=== PATIENT | male | born 1930 | race Caucasian/White ===

== ENCOUNTER 2017-07-30 10:59 | Inpatient (IN) | payer OTHER ==
[2017-07-30 12:01] LABS: ADD MAN DIFF? NO
[2017-07-30 12:15] LABS: BASOPHILS % 0.2 % (0.0-2.0); EOSINOPHILS % 0.7 % (0.0-7.0); HEMATOCRIT 33.1 % (42.0-52.0); HEMOGLOBIN 10.9 g/dl (14.0-18.0); LYMPHOCYTES # 1.5 10^3/ul (0.8-2.9); LYMPHOCYTES % 28.2 % (15.0-51.0); MEAN CORPUSCULAR HEMOGLOBIN 31.6 pg (29.0-33.0); MEAN CORPUSCULAR HGB CONC 32.9 g/dl (32.0-37.0); MEAN CORPUSCULAR VOLUME 95.9 fl (82.0-101.0); MEAN PLATELET VOLUME 10.2 fl (7.4-10.4); MONOCYTE # 0.5 10^3/ul (0.3-0.9); MONOCYTES % 8.7 % (0.0-11.0); NEUTROPHIL # 3.3 10^3/ul (1.6-7.5); NEUTROPHILS % 61.5 % (39.0-77.0); PLATELET COUNT 147 10^3/UL (140-415); RED BLOOD COUNT 3.45 10^6/ul (4.70-6.10); RED CELL DISTRIBUTION WIDTH 15.7 % (11.5-14.5)
[2017-07-30 12:15] LABS: WHITE BLOOD COUNT 5.4 10^3/ul (4.8-10.8)
[2017-07-30] MEDS: SOD CHLORIDE 0.9% 1,000 ML IV ×3 (12:16→23:54)
[2017-07-30 12:36] LABS: INR 0.91; PROTIME 12.3 Sec (11.9-14.9)
[2017-07-30 12:37] LABS: PARTIAL THROMBOPLASTIN TIME 40.8 Sec (25.0-35.0)
[2017-07-30 12:48] LABS: ALANINE AMINOTRANSFERASE 24 IU/L (13-69); ALBUMIN 3.5 g/dl (3.3-4.9); ALBUMIN/GLOBULIN RATIO 0.79; ALKALINE PHOSPHATASE 86 IU/L (42-121); ANION GAP 16 (8-16); ASPARTATE AMINO TRANSFERASE 32 IU/L (15-46); BILIRUBIN,INDIRECT 0.1 mg/dl (0-1.1); BILIRUBIN,TOTAL 0.1 mg/dl (0.2-1.3); BLOOD UREA NITROGEN 29 mg/dl (7-20); CALCIUM 8.8 mg/dl (8.4-10.2); CARBON DIOXIDE 30 mmol/L (21-31); CHLORIDE 99 mmol/L (97-110); CREATININE 0.75 mg/dl (0.61-1.24); GLUCOSE 123 mg/dl (70-220); POTASSIUM 4.7 mmol/L (3.5-5.1); SODIUM 140 mmol/L (135-144); TOTAL PROTEIN 7.9 g/dl (6.1-8.1)
[2017-07-30 13:04] LABS: OCCULT BLOOD STOOL POSITIVE (NEGATIVE)
[2017-07-30] MEDS ORDERED: ARTIFICIAL TEARS 15 ML OPH BOTH EYES (14:00)
[2017-07-30] MEDS ORDERED: ALBUTEROL/IPRATROPIUM (NEB) 3 ML AMP INH (14:00)
[2017-07-30] MEDS ORDERED: PHENOL 1.4% SOLN 180 ML BTL MT (14:00)
[2017-07-30] MEDS ORDERED: NACL 0.9% 3 ML SYG IV (14:00)
[2017-07-30] MEDS ORDERED: NYSTATIN SUSP 5 ML CUP PO (14:00)
[2017-07-30] MEDS ORDERED: traZODone 100 MG TAB PO (14:00)
[2017-07-30] MEDS ORDERED: BISACODYL 10 MG SUPP PR (14:00)
[2017-07-30] MEDS ORDERED: ACETAMINOPHEN 325 MG TAB PO (14:00)
[2017-07-30] MEDS ORDERED: NA PHOSPHATE/BIPHOS 133 ML ENEMA PR (14:00)
[2017-07-30] MEDS ORDERED: ACETAMINOPHEN 325 MG TAB GTB (14:00)
[2017-07-30] MEDS ORDERED: ONDANSETRON 4 MG INJ IV ×2 (14:00)
[2017-07-30] MEDS ORDERED: morphine 2 MG INJ IV (14:00)
[2017-07-30] MEDS: CEFTRIAXONE 1 GM/50 ML (PMX) 50 ML IVPB (14:38)
[2017-07-30] MEDS: CLONIDINE 0.1 MG/24 HR PATCH TRANSDERM (14:44)
[2017-07-30 19:02] LABS: HEMATOCRIT 25.2 % (42.0-52.0); HEMOGLOBIN 8.4 g/dl (14.0-18.0)
[2017-07-30] MEDS: LACTULOSE 30ML CUP GTB ×2 (20:14→22:20)
[2017-07-30] MEDS: LANSOPRAZOLE 30 MG CAP GTB (20:35)
[2017-07-30] MEDS: SENNA TAB GTB (20:36)
[2017-07-30] MEDS: METOPROLOL 25 MG TAB GTB (20:36)
[2017-07-31] MEDS: LACTULOSE 30ML CUP GTB ×4 (00:53→10:36)
[2017-07-31 01:10] LABS: HEMATOCRIT 26.1 % (42.0-52.0); HEMOGLOBIN 8.8 g/dl (14.0-18.0)
[2017-07-31] MEDS ORDERED: AMIODARONE 200 MG TAB (03:54)
[2017-07-31] MEDS: METOPROLOL 50 MG TAB GTB (03:57)
[2017-07-31] MEDS: AMIODARONE 200 MG TAB GTB (03:57)
[2017-07-31] MEDS: LANSOPRAZOLE 30 MG CAP GTB ×2 (05:45→19:04)
[2017-07-31 07:27] LABS: ADD MAN DIFF? NO
[2017-07-31 07:30] LABS: WHITE BLOOD COUNT 4.6 10^3/ul (4.8-10.8)
[2017-07-31 07:30] LABS: BASOPHILS % 0.2 % (0.0-2.0); EOSINOPHILS % 0.2 % (0.0-7.0); HEMATOCRIT 27.6 % (42.0-52.0); HEMOGLOBIN 9.1 g/dl (14.0-18.0); LYMPHOCYTES # 1.9 10^3/ul (0.8-2.9); LYMPHOCYTES % 40.7 % (15.0-51.0); MEAN CORPUSCULAR HEMOGLOBIN 31.6 pg (29.0-33.0); MEAN CORPUSCULAR VOLUME 95.8 fl (82.0-101.0); MEAN PLATELET VOLUME 10.2 fl (7.4-10.4); MONOCYTE # 0.5 10^3/ul (0.3-0.9); MONOCYTES % 11.4 % (0.0-11.0); NEUTROPHIL # 2.1 10^3/ul (1.6-7.5); NEUTROPHILS % 46.6 % (39.0-77.0); PLATELET COUNT 129 10^3/UL (140-415); POSITIVE DIFF @See below; RED BLOOD COUNT 2.88 10^6/ul (4.70-6.10); RED CELL DISTRIBUTION WIDTH 15.9 % (11.5-14.5)
[2017-07-31 08:01] LABS: ANION GAP 15 (8-16); BLOOD UREA NITROGEN 23 mg/dl (7-20); CALCIUM 8.8 mg/dl (8.4-10.2); CARBON DIOXIDE 27 mmol/L (21-31); CHLORIDE 114 mmol/L (97-110); CREATININE 0.71 mg/dl (0.61-1.24); GLUCOSE 152 mg/dl (70-220); MAGNESIUM 1.8 mg/dl (1.7-2.5); PHOSPHORUS 3.9 mg/dl (2.5-4.9); POTASSIUM 4.3 mmol/L (3.5-5.1); SODIUM 152 mmol/L (135-144)
[2017-07-31] MEDS: SENNA TAB GTB ×2 (08:15→21:00)
[2017-07-31] MEDS: METOPROLOL 25 MG TAB GTB ×2 (08:17→21:09)
[2017-07-31] MEDS: POLYETHYLENE GLYCOL 17 GM PACKET GTB (08:17)
[2017-07-31] MEDS: TIOTROPIUM 18 MCG CAPSULE INHA DEV INH (09:00)
[2017-07-31] MEDS: DEXTROSE 5%-0.45% NACL 1,000 ML IV (13:23)
[2017-07-31 13:29] LABS: HEMATOCRIT 30.5 % (42.0-52.0); HEMOGLOBIN 9.8 g/dl (14.0-18.0)
[2017-07-31] MEDS: CEFTRIAXONE 1 GM/50 ML (PMX) 50 ML IVPB (13:35)
[2017-07-31] MEDS: FLUCONAZOLE 100 MG TAB GTB (19:04)
[2017-08-01] MEDS: DEXTROSE 5%-0.45% NACL 1,000 ML IV ×2 (06:33→17:28)
[2017-08-01] MEDS: LANSOPRAZOLE 30 MG CAP GTB ×2 (06:33→17:28)
[2017-08-01 07:39] LABS: ADD MAN DIFF? NO
[2017-08-01 07:47] LABS: BASOPHILS % 0.2 % (0.0-2.0); EOSINOPHILS % 0.6 % (0.0-7.0); HEMATOCRIT 26.2 % (42.0-52.0); HEMOGLOBIN 8.5 g/dl (14.0-18.0); LYMPHOCYTES # 1.7 10^3/ul (0.8-2.9); LYMPHOCYTES % 34.4 % (15.0-51.0); MEAN CORPUSCULAR HEMOGLOBIN 32.1 pg (29.0-33.0); MEAN CORPUSCULAR HGB CONC 32.4 g/dl (32.0-37.0); MEAN CORPUSCULAR VOLUME 98.9 fl (82.0-101.0); MEAN PLATELET VOLUME 10.3 fl (7.4-10.4); MONOCYTE # 0.6 10^3/ul (0.3-0.9); MONOCYTES % 12.1 % (0.0-11.0); NEUTROPHIL # 2.6 10^3/ul (1.6-7.5); NEUTROPHILS % 51.9 % (39.0-77.0); PLATELET COUNT 125 10^3/UL (140-415); POSITIVE DIFF @See below; RED BLOOD COUNT 2.65 10^6/ul (4.70-6.10); RED CELL DISTRIBUTION WIDTH 15.9 % (11.5-14.5)
[2017-08-01 08:11] LABS: ALBUMIN 3.1 g/dl (3.3-4.9); ANION GAP 10 (8-16); BLOOD UREA NITROGEN 28 mg/dl (7-20); CALCIUM 8.5 mg/dl (8.4-10.2); CARBON DIOXIDE 26 mmol/L (21-31); CHLORIDE 117 mmol/L (97-110); CREATININE 0.89 mg/dl (0.61-1.24); GLUCOSE 194 mg/dl (70-220); MAGNESIUM 1.7 mg/dl (1.7-2.5); PHOSPHORUS 3.1 mg/dl (2.5-4.9); POTASSIUM 3.5 mmol/L (3.5-5.1); SODIUM 149 mmol/L (135-144)
[2017-08-01] MEDS: AMIODARONE 200 MG TAB GTB (09:47)
[2017-08-01] MEDS: POLYETHYLENE GLYCOL 17 GM PACKET GTB (09:47)
[2017-08-01] MEDS: SENNA TAB GTB ×2 (09:47→20:19)
[2017-08-01] MEDS: FLUCONAZOLE 100 MG TAB GTB (09:47)
[2017-08-01] MEDS: METOPROLOL 25 MG TAB GTB ×2 (09:48→20:20)
[2017-08-01] MEDS: TIOTROPIUM 18 MCG CAPSULE INHA DEV INH (10:08)
[2017-08-01] MEDS: CEFTRIAXONE 1 GM/50 ML (PMX) 50 ML IVPB (14:55)
[2017-08-01] MEDS: POTASSIUM CHLORIDE 50 ML IVPB ×3 (16:19→22:36)
[2017-08-01] MEDS: MAGNESIUM OXIDE 400 MG TAB GTB (16:19)
[2017-08-02] MEDS: DEXTROSE 5%-0.45% NACL 1,000 ML IV ×2 (00:35→04:15)
[2017-08-02] MEDS: POTASSIUM CHLORIDE 50 ML IVPB (00:36)
[2017-08-02] MEDS: LANSOPRAZOLE 30 MG CAP GTB ×2 (06:05→17:49)
[2017-08-02 08:31] LABS: ALBUMIN 2.7 g/dl (3.3-4.9); ANION GAP 11 (8-16); BLOOD UREA NITROGEN 19 mg/dl (7-20); CALCIUM 8.5 mg/dl (8.4-10.2); CARBON DIOXIDE 26 mmol/L (21-31); CHLORIDE 108 mmol/L (97-110); CREATININE 0.69 mg/dl (0.61-1.24); GLUCOSE 175 mg/dl (70-220); MAGNESIUM 1.4 mg/dl (1.7-2.5); PHOSPHORUS 2.6 mg/dl (2.5-4.9); POTASSIUM 3.7 mmol/L (3.5-5.1); SODIUM 141 mmol/L (135-144)
[2017-08-02] MEDS: TIOTROPIUM 18 MCG CAPSULE INHA DEV INH (08:41)
[2017-08-02] MEDS: POLYETHYLENE GLYCOL 17 GM PACKET GTB (08:42)
[2017-08-02] MEDS: METOPROLOL 25 MG TAB GTB ×2 (08:43→21:12)
[2017-08-02] MEDS: AMIODARONE 200 MG TAB GTB (08:44)
[2017-08-02] MEDS: SENNA TAB GTB ×2 (08:44→21:11)
[2017-08-02] MEDS: FLUCONAZOLE 100 MG TAB GTB (08:44)
[2017-08-02] MEDS: MAGNESIUM SULFATE 2 GM/50 ML 50 ML IVPB (13:23)
[2017-08-02] MEDS ORDERED: IOHEXOL 300MG/ML 30 ML BTL ×2 (14:03→14:04)
[2017-08-02] MEDS: CEFTRIAXONE 1 GM/50 ML (PMX) 50 ML IVPB (15:23)
[2017-08-03] MEDS: LANSOPRAZOLE 30 MG CAP GTB ×2 (06:22→17:27)
[2017-08-03 07:43] LABS: ADD MAN DIFF? NO
[2017-08-03 07:49] LABS: BASOPHILS % 0.2 % (0.0-2.0); EOSINOPHILS # 0.1 10^3/ul (0.0-0.5); EOSINOPHILS % 2.3 % (0.0-7.0); HEMATOCRIT 23.3 % (42.0-52.0); HEMOGLOBIN 7.7 g/dl (14.0-18.0); LYMPHOCYTES # 1.6 10^3/ul (0.8-2.9); LYMPHOCYTES % 32.8 % (15.0-51.0); MEAN CORPUSCULAR HEMOGLOBIN 31.6 pg (29.0-33.0); MEAN CORPUSCULAR VOLUME 95.5 fl (82.0-101.0); MEAN PLATELET VOLUME 10.4 fl (7.4-10.4); MONOCYTE # 0.5 10^3/ul (0.3-0.9); NEUTROPHIL # 2.5 10^3/ul (1.6-7.5); NEUTROPHILS % 51.8 % (39.0-77.0); PLATELET COUNT 121 10^3/UL (140-415); RED BLOOD COUNT 2.44 10^6/ul (4.70-6.10)
[2017-08-03 07:49] LABS: WHITE BLOOD COUNT 4.8 10^3/ul (4.8-10.8)
[2017-08-03] MEDS: SENNA TAB GTB ×2 (08:14→20:09)
[2017-08-03] MEDS: POLYETHYLENE GLYCOL 17 GM PACKET GTB (08:14)
[2017-08-03] MEDS: FLUCONAZOLE 100 MG TAB GTB (08:15)
[2017-08-03] MEDS: AMIODARONE 200 MG TAB GTB (08:15)
[2017-08-03] MEDS: TIOTROPIUM 18 MCG CAPSULE INHA DEV INH (08:16)
[2017-08-03] MEDS: METOPROLOL 25 MG TAB GTB ×2 (08:16→20:08)
[2017-08-03 08:22] LABS: ANION GAP 11 (8-16)
[2017-08-03 08:26] LABS: ALBUMIN 2.6 g/dl (3.3-4.9); BLOOD UREA NITROGEN 17 mg/dl (7-20); CALCIUM 8.1 mg/dl (8.4-10.2); CARBON DIOXIDE 27 mmol/L (21-31); CHLORIDE 105 mmol/L (97-110); CREATININE 0.64 mg/dl (0.61-1.24); GLUCOSE 167 mg/dl (70-220); MAGNESIUM 1.7 mg/dl (1.7-2.5); PHOSPHORUS 3.2 mg/dl (2.5-4.9); POTASSIUM 3.9 mmol/L (3.5-5.1); SODIUM 139 mmol/L (135-144)
[2017-08-03] MEDS: DEXTROSE 5%-0.45% NACL 1,000 ML IV ×2 (12:47→21:38)
[2017-08-04] MEDS: LANSOPRAZOLE 30 MG CAP GTB ×2 (05:37→17:18)
[2017-08-04 07:56] LABS: ADD MAN DIFF? NO
[2017-08-04 08:07] LABS: BASOPHILS % 0.4 % (0.0-2.0); EOSINOPHILS # 0.1 10^3/ul (0.0-0.5); EOSINOPHILS % 2.6 % (0.0-7.0); HEMATOCRIT 26.3 % (42.0-52.0); HEMOGLOBIN 8.7 g/dl (14.0-18.0); LYMPHOCYTES # 1.6 10^3/ul (0.8-2.9); LYMPHOCYTES % 31.4 % (15.0-51.0); MEAN CORPUSCULAR HEMOGLOBIN 31.3 pg (29.0-33.0); MEAN CORPUSCULAR HGB CONC 33.1 g/dl (32.0-37.0); MEAN CORPUSCULAR VOLUME 94.6 fl (82.0-101.0); MEAN PLATELET VOLUME 9.9 fl (7.4-10.4); MONOCYTE # 0.5 10^3/ul (0.3-0.9); MONOCYTES % 10.5 % (0.0-11.0); NEUTROPHIL # 2.6 10^3/ul (1.6-7.5); NEUTROPHILS % 52.7 % (39.0-77.0); PLATELET COUNT 136 10^3/UL (140-415); RED BLOOD COUNT 2.78 10^6/ul (4.70-6.10)
[2017-08-04 08:07] LABS: WHITE BLOOD COUNT 4.9 10^3/ul (4.8-10.8)
[2017-08-04] MEDS: POLYETHYLENE GLYCOL 17 GM PACKET GTB (09:19)
[2017-08-04] MEDS: SENNA TAB GTB ×2 (09:20→21:32)
[2017-08-04] MEDS: TIOTROPIUM 18 MCG CAPSULE INHA DEV INH (09:20)
[2017-08-04] MEDS: METOPROLOL 25 MG TAB GTB ×2 (09:21→21:32)
[2017-08-04] MEDS: AMIODARONE 200 MG TAB GTB (09:21)
[2017-08-04] MEDS: FLUCONAZOLE 100 MG TAB GTB (09:21)
[2017-08-04] MEDS: DEXTROSE 5%-0.45% NACL 1,000 ML IV (17:18)
[2017-08-05] MEDS: LANSOPRAZOLE 30 MG CAP GTB ×2 (05:48→17:29)
[2017-08-05 07:59] LABS: ADD MAN DIFF? NO
[2017-08-05 08:03] LABS: BASOPHILS % 0.3 % (0.0-2.0); EOSINOPHILS # 0.1 10^3/ul (0.0-0.5); EOSINOPHILS % 1.3 % (0.0-7.0); HEMATOCRIT 25.9 % (42.0-52.0); HEMOGLOBIN 8.9 g/dl (14.0-18.0); LYMPHOCYTES # 1.4 10^3/ul (0.8-2.9); LYMPHOCYTES % 22.9 % (15.0-51.0); MEAN CORPUSCULAR HEMOGLOBIN 32.4 pg (29.0-33.0); MEAN CORPUSCULAR HGB CONC 34.4 g/dl (32.0-37.0); MEAN CORPUSCULAR VOLUME 94.2 fl (82.0-101.0); MEAN PLATELET VOLUME 9.7 fl (7.4-10.4); MONOCYTE # 0.7 10^3/ul (0.3-0.9); MONOCYTES % 11.4 % (0.0-11.0); NEUTROPHIL # 3.8 10^3/ul (1.6-7.5); NEUTROPHILS % 62.3 % (39.0-77.0); PLATELET COUNT 161 10^3/UL (140-415); RED BLOOD COUNT 2.75 10^6/ul (4.70-6.10); RED CELL DISTRIBUTION WIDTH 15.3 % (11.5-14.5)
[2017-08-05 08:03] LABS: WHITE BLOOD COUNT 6.1 10^3/ul (4.8-10.8)
[2017-08-05] MEDS: POLYETHYLENE GLYCOL 17 GM PACKET GTB (09:00)
[2017-08-05] MEDS: TIOTROPIUM 18 MCG CAPSULE INHA DEV INH (09:00)
[2017-08-05] MEDS: SENNA TAB GTB ×2 (09:00→21:00)
[2017-08-05] MEDS: AMIODARONE 200 MG TAB GTB (09:41)
[2017-08-05] MEDS: METOPROLOL 25 MG TAB GTB ×2 (09:42→21:49)
[2017-08-05] MEDS: FLUCONAZOLE 100 MG TAB GTB (09:42)
[2017-08-06] MEDS: LANSOPRAZOLE 30 MG CAP GTB ×2 (06:35→17:40)
[2017-08-06] MEDS: FLUCONAZOLE 100 MG TAB GTB (08:17)
[2017-08-06] MEDS: AMIODARONE 200 MG TAB GTB (08:17)
[2017-08-06] MEDS: METOPROLOL 25 MG TAB GTB ×2 (08:18→20:53)
[2017-08-06] MEDS: SENNA TAB GTB ×2 (08:22→20:52)
[2017-08-06] MEDS: POLYETHYLENE GLYCOL 17 GM PACKET GTB (08:22)
[2017-08-06] MEDS: CLONIDINE 0.1 MG/24 HR PATCH TRANSDERM (14:35)
[2017-08-06] MEDS: TIOTROPIUM 18 MCG CAPSULE INHA DEV INH (14:36)
[2017-08-07] MEDS: LANSOPRAZOLE 30 MG CAP GTB ×2 (06:18→18:06)
[2017-08-07] MEDS: POLYETHYLENE GLYCOL 17 GM PACKET GTB (09:16)
[2017-08-07] MEDS: SENNA TAB GTB ×2 (09:16→20:11)
[2017-08-07] MEDS: METOPROLOL 25 MG TAB GTB ×2 (09:17→20:12)
[2017-08-07] MEDS: AMIODARONE 200 MG TAB GTB (09:17)
[2017-08-07] MEDS: TIOTROPIUM 18 MCG CAPSULE INHA DEV INH (09:23)
[2017-08-08] MEDS: LANSOPRAZOLE 30 MG CAP GTB ×2 (06:30→18:48)
[2017-08-08] MEDS: POLYETHYLENE GLYCOL 17 GM PACKET GTB (09:27)
[2017-08-08] MEDS: SENNA TAB GTB ×2 (09:28→21:07)
[2017-08-08] MEDS: METOPROLOL 25 MG TAB GTB ×2 (09:28→21:09)
[2017-08-08] MEDS: AMIODARONE 200 MG TAB GTB (09:28)
[2017-08-08] MEDS: TIOTROPIUM 18 MCG CAPSULE INHA DEV INH (12:08)
== END 2017-08-08 | DRG 394 ==
LOC: TEL 07-31 04:35 → E/R 10:59 → PP2 14:33
PROC: 0D5M8ZZ Destruction of Descending Colon, Via Natural or Artificial Opening Endoscopic (ICD-10-PCS; principal; 2017-07-31 17:00)
PROC: 0DB68ZX Excision of Stomach, Via Natural or Artificial Opening Endoscopic, Diagnostic (ICD-10-PCS; 2017-07-31 17:00)
PROC: 0DB78ZX Excision of Stomach, Pylorus, Via Natural or Artificial Opening Endoscopic, Diagnostic (ICD-10-PCS; 2017-07-31 17:00)
DX: K64.8 Other hemorrhoids (principal); T83.511A Infection and inflammatory reaction due to indwelling urethral catheter, initial encounter; Z93.1 Gastrostomy status; N39.0 Urinary tract infection, site not specified; R31.0 Gross hematuria; B37.9 Candidiasis, unspecified; K63.5 Polyp of colon; K29.70 Gastritis, unspecified, without bleeding; Y73.1 Therapeutic (nonsurgical) and rehabilitative gastroenterology and urology devices associated with adverse incidents; R47.02 Dysphasia; Z85.46 Personal history of malignant neoplasm of prostate; Z92.3 Personal history of irradiation; I10 Essential (primary) hypertension; Z87.891 Personal history of nicotine dependence; K62.7 Radiation proctitis; Y84.2 Radiological procedure and radiotherapy as the cause of abnormal reaction of the patient, or of later complication, without mention of misadventure at the time of the procedure; D64.9 Anemia, unspecified
CPT/HCPCS: 36415; 71045; 72192; 74230; 76700; 80048; 80053; 80069; 82270; 83735; 84100; 85014; 85018; 85025; 85610; 85730; 86850; 86900; 86901; 87081; 87086; 88305; 88312; 92526; 92610; 92611; 96365; 96366; 97110; 97116; 97163; 97530; 99285-25